=== PATIENT | male | born 1955 | race Asian ===

== ENCOUNTER 2016-09-20 12:57 | Outpatient (CLI) | payer OTHER, BC ==
[~2016-09-20 12:57] MED LIST: ASPIR-8181 MG OR; CALCIUM500 M2 OR; METF500T PO; ZOCOR80 MG OR
== END 2016-09-20 23:38 | disposition home or self-care (01) ==
LOC: US 12:57
DX: M79.661 Pain in right lower leg (principal)

== ENCOUNTER 2017-11-21 19:32 | Emergency (ER) | payer OTHER ==
[~2017-11-21] VITALS: Ht 180.3 cm; Wt 105.2 kg
[2017-11-21 23:08] LABS: PLATELET COUNT 252 K/uL (142-355)
[2017-11-21 23:15] LABS: POTASSIUM 3.9 mmol/L (3.6-5.2)
[2017-11-21 23:52] VITALS: BP 124/77; TEMP 98.4
== END 2017-11-21 23:53 | disposition home or self-care (01) ==
LOC: ED 19:32
DX: J44.1 Chronic obstructive pulmonary disease with (acute) exacerbation (principal); J06.9 Acute upper respiratory infection, unspecified
CPT/HCPCS: 36415; 80053; 85027; 93005; 99283

== ENCOUNTER 2017-12-18 15:00 | Outpatient (CLI) | payer OTHER | END 2017-12-18 22:52 | disposition home or self-care (01) | LOC: RESP 15:00 | DX: R06.02 Shortness of breath (principal) ==

== ENCOUNTER 2018-06-15 13:29 | Outpatient (CLI) | payer OTHER | END 2018-06-15 20:19 | disposition home or self-care (01) | LOC: LAB 13:29 | DX: N34.2 Other urethritis (principal) | CPT/HCPCS: 87086; 87088 ==

== ENCOUNTER 2018-12-05 19:17 | Outpatient (CLI) | payer OTHER | END 2018-12-05 20:45 | disposition home or self-care (01) | LOC: LABW 19:17 | DX: R31.9 Hematuria, unspecified (principal); R30.0 Dysuria | CPT/HCPCS: 81000; 87086; 87088 ==

== ENCOUNTER 2018-12-19 13:41 | Outpatient (CLI) | payer OTHER | END 2018-12-19 20:15 | disposition home or self-care (01) | LOC: LAB 13:41 | DX: R31.9 Hematuria, unspecified (principal) | CPT/HCPCS: 81000; 87088 ==

== ENCOUNTER 2019-10-22 16:06 | Outpatient (CLI) | payer OTHER ==
[2019-10-22 16:48] LABS: PLATELET COUNT 383 K/uL (142-355)
== END 2019-10-22 19:12 | disposition home or self-care (01) ==
LOC: LABW 16:06
PROVIDERS: Internal Medicine
DX: D64.89 Other specified anemias (principal)
CPT/HCPCS: 36415; 85027

== ENCOUNTER 2022-09-30 15:45 | Emergency (ER) | payer OTHER ==
[~2022-09-30] VITALS: Ht 180.3 cm; Wt 104.3 kg
[2022-09-30 15:50] VITALS: BP 191/95; TEMP 98.7
== END 2022-09-30 17:35 | disposition home or self-care (01) ==
LOC: ED 15:45
DX: S61.112A Laceration without foreign body of left thumb with damage to nail, initial encounter (principal); S67.02XA Crushing injury of left thumb, initial encounter; W20.8XXA Other cause of strike by thrown, projected or falling object, initial encounter; Y92.512 Supermarket, store or market as the place of occurrence of the external cause
CPT/HCPCS: 90471; 90715; 99283

== ENCOUNTER 2022-11-04 15:32 | Outpatient (CLI) | payer OTHER | END 2022-11-04 19:35 | disposition home or self-care (01) | LOC: US 15:32 | PROVIDERS: ATTEND Internal Medicine | DX: R42 Dizziness and giddiness (principal) ==